=== PATIENT | male | born 1955 | race Caucasian/White ===

== ENCOUNTER 2017-09-11 14:54 | Emergency (ER) | payer OTHER ==
[2017-09-11] MEDS ORDERED: NS 0.9% 1000 ML* 1,000 ML IV ONE ×3 (15:18→17:08)
[2017-09-11] MEDS ORDERED: Metoclopramide IV* 5 MG/ML 2 ML VIAL IV ONE (15:19)
[2017-09-11] MEDS ORDERED: diPHENhydraMINE IV* 50 MG/ML 1 ml VIAL (BENADRYL) IV ONE (15:19)
[2017-09-11 15:40] LABS: ABS Basophils 0 10^3/ul (0-0.2); ABS Eosinophils 0.1 10^3/ul (0-0.6); ABS Lymphocytes 0.3 10^3/ul (1.0-4.8); ABS Monocytes 0.4 10^3/ul (0-0.8); ABS Neutrophils 9.6 10^3/ul (1.5-7.7); ABS Nucleated RBC 0 10^3/ul; Eosinophil % 0.5 % (0-6); Hematocrit 50 % (42-52); Hemoglobin 17.3 g/dl (14.0-18.0); Lymphocyte % 3.3 % (25-47); Mean Corpuscular HGB Conc 35 g/dl (31-36); Mean Corpuscular Hemoglobin 30 pg (27-31); Mean Corpuscular Volume 87 fL (80-94); Nucleated Red Blood Cells % 0.1; Platelet Count 244 10^3/ul (150-450); Red Blood Count 5.75 10^6/ul (4.00-5.40); Red Cell Distribution Width 14 % (10.5-15); White Blood Count 10.3 10^3/ul (3.5-10.8)
[2017-09-11 16:24] LABS: EGFR Non-African American 46.4 (>60)
--- NOTE | 2017-09-11 18:28 | ED ---
Amandeep Koo Tenzin, scribed for Aries Ayala MD on 09/11/17 at 1528 . Complex/Multi-Sys Presentation - HPI Summary HPI Summary: Pt is a 62 years old male presenting to the ED complaining of D/V since yesterday night after attending a graduation libertarian. Pt is also complaining bad cramps in his legs that is painful when he tries to get up. Pt is not on any blood thinners. Pt denies fever, BAL or nausea. No aggravating or alleviating factors were noted. Pt is a nonsmoker but drinks EtOH occasionally. At the ED, during his physical examination, pt experienced another episode of bad "Leg cramps". - History Of Current Complaint Chief Complaint: EDAbdPain Time Seen by Provider: 09/11/17 15:12 Hx Obtained From: Patient Associated Signs And Symptoms: Positive: Vomiting, Diarrhea, Other - Leg cramps.. Negative: Headache, Nausea, Fever - Allergies/Home Medications Allergies/Adverse Reactions: Allergies Allergy/AdvReac Type Severity Reaction Status Date / Time No Known Allergies Allergy Verified 09/11/17 14:57 Home Medications: Home Medications Pravastatin Sodium 40 mg PO DAILY 09/11/17 [History Confirmed 09/11/17] PMH/Surg Hx/FS Hx/Imm Hx Infectious Disease History: No Infectious Disease History: Denies: Traveled Outside the [place] in Last 30 Days Review of Systems Positive: Vomiting, Diarrhea Positive: Other - Cramps in his both legs. All Other Systems Reviewed And Are Negative: Yes Physical Exam - Summary Physical Exam Summary: Appearance: Well appearing, no pain distress Skin: warm, dry, reflects adequate perfusion Head/face: normal Eyes: EOMI, MART ENT: normal Neck: supple, non-tender Respiratory: CTA, breath sounds present Cardiovascular: RRR, pulses symmetrical Abdomen: non-tender, soft Bowel Sounds: present, Normal bowel sound. Musculoskeletal: normal, strength/ROM intact Neuro: normal, sensory motor intact, A&Ox3 Triage Information Reviewed: Yes Vital Signs On Initial Exam: Initial Vitals Temp Pulse Resp BP Pulse Ox 98.8 F 113 14 142/83 99 09/11/17 14:55 09/11/17 14:55 09/11/17 14:55 09/11/17 14:55 09/11/17 14:55 Vital Signs Reviewed: Yes Diagnostics - Vital Signs Vital Signs Temp Pulse Resp BP Pulse Ox 09/11/17 14:55 98.8 F 113 14 142/83 99 - Laboratory Lab Results: Lab Results 09/11/17 09/11/17 09/11/17 Range/Units 15:26 15:26 15:26 WBC 10.3 (3.5-10.8) 10^3/ul RBC 5.75 H (4.00-5.40) 10^6/ul Hgb 17.3 (14.0-18.0) g/dl Hct 50 (42-52) % MCV 87 (80-94) fL MCH 30 (27-31) pg MCHC 35 (31-36) g/dl RDW 14 (10.5-15) % Plt Count 244 (150-450) 10^3/ul MPV 7.0 L (7.4-10.4) um3 Neut % (Auto) 92.6 H (38-83) % Lymph % (Auto) 3.3 L (25-47) % [place] % (Auto) 3.5 (0-7) % Eos % (Auto) 0.5 (0-6) % Baso % (Auto) 0.1 (0-2) % Absolute Neuts (auto) 9.6 H (1.5-7.7) 10^3/ul Absolute Lymphs (auto) 0.3 L (1.0-4.8) 10^3/ul Absolute Monos (auto) 0.4 (0-0.8) 10^3/ul Absolute Eos (auto) 0.1 (0-0.6) 10^3/ul Absolute Basos (auto) 0 (0-0.2) 10^3/ul Absolute Nucleated RBC 0 10^3/ul Nucleated RBC % 0.1 Sodium 136 (135-145) mmol/L Potassium 4.1 (3.5-5.0) mmol/L Chloride 102 (101-111) mmol/L Carbon Dioxide 20 L (22-32) mmol/L Anion Gap 14 H (2-11) mmol/L BUN 30 H (6-24) mg/dL Creatinine 1.53 H (0.67-1.17) mg/dL Est GFR ( Amer) 56.1 (>60) Est GFR (Non-Af Amer) 46.4 (>60) BUN/Creatinine Ratio 19.6 (8-20) Glucose 174 H (70-100) mg/dL Lactic Acid 1.5 (0.5-2.0) mmol/L Calcium 10.9 H (8.6-10.3) mg/dL Magnesium 1.8 L (1.9-2.7) mg/dL Total Bilirubin 1.00 (0.2-1.0) mg/dL AST 20 (13-39) U/L ALT 21 (7-52) U/L Alkaline Phosphatase 147 H (34-104) U/L Total Creatine Kinase 250 H (10-223) U/L C-Reactive Protein 21.87 H (<8.01) mg/L Total Protein 8.8 (6.4-8.9) g/dL Albumin 4.8 (3.2-5.2) g/dL Globulin 4.0 (2-4) g/dL Albumin/Globulin Ratio 1.2 (1-3) Lipase < 10 L (11.0-82.0) U/L Result Diagrams: 09/11/17 15:26 09/11/17 15:26 Lab Statement: Any lab studies that have been ordered have been reviewed, and results considered in the medical decision making process. Re-Evaluation - Re-Evaluation First Eval Re-Evaluation Time: 17:09 Change: Improved Comment: Pt is on 3 L fluid. Pt notes that he is feeling better now. Complex Multi-Symp Course/Dx Course Of Treatment: pt with aburt onset n/v/d after outdoor picnic in hot weather. Now with muscle cramps and watery diarrhea. No abd pain. Cr bumped from 0.8 to 1.5. Nausea relieved with meds. CPK not elevated. 3L of NS resusitation for ARF. Pt much improved after. D/C with close f/u PMD. - Diagnoses Provider Diagnoses: Dehydration, Acute renal failure, Gastroenteritis - Critical Care Time Critical Care Time: 30-74 min - critical care time is exclusive of separately billable procedures Discharge - Sign-Out/Discharge Documenting (check all that apply): Discharge/Admit/Transfer - Discharge Plan Condition: Stable Disposition: HOME Prescriptions: Ondansetron [Zofran Odt] 4 mg PO TID PRN #12 tab.rapdis PRN Reason: Nausea Patient Education Materials: Dehydration (ED), Food Poisoning (ED) Referrals: Arline Orourke MD [Primary Care Provider] - Additional Instructions: Call your doctor first thing in the morning for follow-up. They will want to recheck your kidney function. Stay well-hydrated. Avoid aspirin, ibuprofen, Aleve or other anti-inflammatory medications. He may take Tylenol as needed for cramping. Return with dark-colored tear urine, not urinating, fever, worse , new symptoms or other concerns. - Billing Disposition and Condition Condition: STABLE Disposition: Home The documentation as recorded by the Amandeep lima Tenzin accurately reflects the service I personally performed and the decisions made by me, Aries Ayala MD.
[2017-09-11 18:42] VITALS: BP 122/72
== END 2017-09-11 18:50 | disposition home or self-care (01) ==
LOC: ED 14:54
DX: E86.0 Dehydration (principal); N17.9 Acute kidney failure, unspecified; K52.9 Noninfective gastroenteritis and colitis, unspecified; R11.10 Vomiting, unspecified; R19.7 Diarrhea, unspecified; R25.2 Cramp and spasm
CPT/HCPCS: 36415; 80053; 82550; 83605; 83690; 83735; 85025; 86140; 96374; 96375; 99283; J1200; J2765